=== PATIENT | female | born 1975 | race Two or more races ===

== ENCOUNTER 2023-09-05 06:04 | Emergency (ER) | payer MEDICAID, OTHER ==
[~2023-09-05] VITALS: Ht 149.9 cm; Wt 72.7 kg
[2023-09-05 09:51] VITALS: BP 158/102; PULSE 86; RESP 18; TEMP 98.3; O2SAT 96
[2023-09-05] MEDS ORDERED: HYDROcodone-ACET 5/325MG TAB PO ONE (10:30)
[2023-09-05] MEDS ORDERED: AMPICILLIN & SULBACTAM SODIUM 3 GM in SODIUM CHL 0.9% 100 ML IV ONE (10:45)
[2023-09-05] MEDS ORDERED: TETANUS-DIPTH-ACEL PERTUSSIS 0.5ML SYR Tdap IM ONE (10:45)
[2023-09-05] MEDS ORDERED: HYDR-4902 PO (11:03)
== END 2023-09-05 12:25 | disposition home or self-care (01) ==
LOC: ER 06:04
DX: S40.862A Insect bite (nonvenomous) of left upper arm, initial encounter (principal); L02.414 Cutaneous abscess of left upper limb; I10 Essential (primary) hypertension; W57.XXXA Bitten or stung by nonvenomous insect and other nonvenomous arthropods, initial encounter; Y93.89 Activity, other specified; Y92.89 Other specified places as the place of occurrence of the external cause; Y99.8 Other external cause status
CPT/HCPCS: 90471; 90715; 96365